=== PATIENT | female | born 1945 | race Caucasian/White ===

== ENCOUNTER 2019-04-27 15:09 | Emergency (ER) | payer OTHER ==
[~2019-04-27] VITALS: Ht 172.7 cm; Wt 82.6 kg
[2019-04-27 15:18] VITALS: BP 126/72
== END 2019-04-27 22:26 | disposition left against medical advice (07) ==
LOC: ER 15:25
DX: M79.642 Pain in left hand (principal); Z53.21 Procedure and treatment not carried out due to patient leaving prior to being seen by health care provider